=== PATIENT | male | born 1985 | race Caucasian/White ===

== ENCOUNTER 2018-09-14 14:40 | Emergency (ER) | payer OTHER ==
[~2018-09-14] VITALS: Ht 188 cm; Wt 81.3 kg
[2018-09-14 14:41] VITALS: BP 136/82
--- NOTE | 2018-09-14 15:27 | REP ---
RIGHT HAND, FOUR VIEWS: HISTORY: Injury COMPARISON: 10/08/2008 There is no acute fracture or dislocation. The joint spaces are normal in appearance. Two small radiopaque foreign bodies are present in the soft tissue lateral to the distal phalange of the 3rd digit. IMPRESSION: There is no acute fracture or dislocation. Unreviewed
[2018-09-14] MEDS ORDERED: IBUP-1022 PO (16:54)
== END 2018-09-14 17:02 | disposition home or self-care (01) ==
LOC: M ED 14:40
DX: S60.221A Contusion of right hand, initial encounter (principal); W23.0XXA Caught, crushed, jammed, or pinched between moving objects, initial encounter; Y92.830 Public park as the place of occurrence of the external cause; Y93.62 Activity, american flag or touch football; Y99.9 Unspecified external cause status; Z72.0 Tobacco use; Z88.2 Allergy status to sulfonamides

== ENCOUNTER → 2020-08-29 | Outpatient (CLI) | payer OTHER ==
[~2020-08-29] MED LIST: IBUP-1022 PO
== END ==
LOC: M PLALAB 15:15
PROVIDERS: ATTEND Obstetrics & Gynecology
DX: Z13.79 Encounter for other screening for genetic and chromosomal anomalies (principal)

== ENCOUNTER 2020-11-20 07:51 | Emergency (ER) | payer OTHER ==
[~2020-11-20] VITALS: Ht 188 cm; Wt 74.2 kg
[2020-11-20] MEDS ORDERED: KETOROLAC 60MG 2ML VIAL IM ONE (09:20)
--- NOTE | 2020-11-20 09:59 | REP ---
INDICATION: CHRONIC PAIN COMPARISON: None TECHNIQUE: AP pelvis AP and frog-lateral views left hip FINDINGS: AP pelvis: The hip joint spaces are symmetric and relatively well maintained. There is no acute fracture, dislocation, or subluxation. Two views left hip the left hip joint space is symmetric and well maintained. There is no fracture, dislocation, or subluxation. IMPRESSION: Within normal limits <Electronically signed by Henok Patel > 11/20/20 [id number]
[2020-11-20] MEDS ORDERED: LIDO5DIS41 TD (10:09)
[2020-11-20] MEDS ORDERED: CYCL-707 PO (10:09)
[2020-11-20] MEDS ORDERED: KETO10TAB PO (10:09)
[2020-11-20 10:47] VITALS: BP 135/72
== END 2020-11-20 10:48 | disposition home or self-care (01) ==
LOC: M ED 07:51
DX: M54.32 Sciatica, left side (principal); F17.200 Nicotine dependence, unspecified, uncomplicated; Z88.1 Allergy status to other antibiotic agents; Z88.2 Allergy status to sulfonamides
CPT/HCPCS: 73502; 96372; 99283; J1885

== ENCOUNTER 2021-09-12 10:51 | Emergency (ER) | payer OTHER ==
[~2021-09-12] VITALS: Ht 188 cm; Wt 79.1 kg
[~2021-09-12 10:51] MED LIST changes: +CYCL-707 PO; +KETO10TAB PO; +LIDO5DIS41 TD
[2021-09-12] MEDS ORDERED: KETOROLAC 60MG 2ML VIAL IM ONE (13:40)
[2021-09-12 13:47] LABS: BASO % 0.4 % (0.0-1.0); EOS # 0.1 10^3/uL (0.0-0.5); EOS % 1.2 % (0.0-3.0); HEMATOCRIT 40.8 % (42.0-52.0); HEMOGLOBIN 13.9 g/dl (13.5-17.5); LYMPH # 1.9 10^3/uL (1.5-5.0); LYMPH % 19.9 % (24.0-44.0); MEAN CORPUSCULAR HEMOGLOBIN 32.5 pg (27.0-33.0); MEAN CORPUSCULAR HGB CONC 34.1 g/dl (32.0-36.5); MEAN CORPUSCULAR VOLUME 95.3 fl (80.0-96.0); MONO # 0.7 10^3/uL (0.0-0.8); NEUTROPHILS # 6.8 10^3/uL (1.5-8.5); NEUTROPHILS % 71.2 % (36.0-66.0); PLATELET COUNT, AUTOMATED 210 10^3/uL (150-450); RED BLOOD COUNT 4.28 10^6/uL (4.30-6.10); WHITE BLOOD COUNT 9.6 10^3/uL (4.0-10.0)
[2021-09-12 14:51] VITALS: BP 132/82
== END 2021-09-12 14:58 | disposition home or self-care (01) ==
LOC: M ED 10:51
DX: R10.9 Unspecified abdominal pain (principal); F17.200 Nicotine dependence, unspecified, uncomplicated; Z88.2 Allergy status to sulfonamides
CPT/HCPCS: 74176; 80047; 81001; 85025; 96372; 99283; J1885